=== PATIENT | female | born 1970 | race American Indian/Alaskan Native ===

== ENCOUNTER 2020-10-10 06:17 | Day surgery (SDC) | payer MEDICAID ==
[~2020-10-10 06:17] MED LIST: SODIUM CHLORIDE 0.9% 1000 ML 1,000 ML IV SCH; ceFAZolin/Water 2 GM/20 ML 2 GM/20 ML SYRINGE IV NR
[2020-10-10 07:11] LABS: Hematocrit 28.1 % (30.3-42.9); Hemoglobin 9.1 gm/dl (10.1-14.3); Mean Corpuscular HGB Conc 33 % (30-34); Mean Corpuscular Volume 86 fl (79-97); Platelet Count 225 K/mm3 (140-440); Red Blood Count 3.28 M/mm3 (3.65-5.03); Red Cell Distribution Width 14.1 % (13.2-15.2)
[2020-10-10] MEDS ORDERED: PROTAMINE SULFATE 50 MG/5 ML INJ ONE (07:11)
[2020-10-10] MEDS ORDERED: HEPARIN 10,000 UNITS/10 ML VIAL ONE (07:11)
[2020-10-10] MEDS ORDERED: SODIUM CHLORIDE 0.9% 250ML 0 ML ONE (07:11)
[2020-10-10] MEDS ORDERED: LIDOCAINE (1%) 10 MG/1 ML VIAL 20 ML MDV ONE (07:18)
[2020-10-10] MEDS ORDERED: SODIUM CHLORIDE 0.9% 500 ML 500 ML ONE (07:19)
[2020-10-10] MEDS ORDERED: BUPIVACAINE/PF (0.5%) 5 MG/1 ML 30 ML VIAL INFILTRATI ONE (07:19)
[2020-10-10] MEDS ORDERED: NITROGLYCERIN SYRINGE 3 ML ONE (07:22)
[2020-10-10 07:31] LABS: Calcium 7.8 mg/dL (8.4-10.2)
--- NOTE | 2020-10-10 07:34 | Anesthesia Day of Surgery ---
Anesthesia Day of Surgery - Day of Surgery Patient Examined: Yes Patient H&P Reviewed: Yes Patient is NPO: Yes Beta Blockers: Yes
[2020-10-10] MEDS ORDERED: fentaNYL 100 MCG/2 ML INJ IV NR (07:36)
[2020-10-10] MEDS ORDERED: HYDROmorphone 1 MG/1 ML INJ IV PRN ×2 (07:36)
[2020-10-10] MEDS ORDERED: ONDANSETRON 4 MG/2 ML INJ IV PRN (07:36)
--- NOTE | 2020-10-10 07:36 | Anesthesia Consultation ---
Anesthesia Consult and Med Hx Date of service: 10/10/20 - Airway Anesthetic Teeth Evaluation: Partials ROM Head & Neck: Adequate Mental/Hyoid Distance: Adequate Mallampati Class: Class III Intubation Access Assessment: Probably Good - Pre-Operative Health Status ASA Pre-Surgery Classification: ASA3 Nerve Block: SC; GA if needed - Pulmonary Hx Smoking: No Hx Asthma: No Hx Respiratory Symptoms: No (+2FS) COPD: No Hx Pneumonia: No Hx Sleep Apnea: No (SCORED HIGH ON PRESCREEN- SNORES) - Cardiovascular System Hx Hypertension: Yes (ETT 6-7 years ago) Hx Heart Attack/AMI: No Hx Pacemaker: No Hx Internal Defibrillator: No Hx Heart Murmur: No - Central Nervous System Hx Seizures: No Hx Back Pain: Yes (OCC. ) Hx Psychiatric Problems: No - Endocrine Hx Renal Disease: Yes Hx End Stage Renal Disease: Yes (HAS NOT STARTED DIALYSIS YET) Hx Cirrhosis: No Hx Liver Disease: No Hx Non-Insulin Dependent Diabetes: Yes Hx Thyroid Disease: Yes Hx Hypothyroidism: Yes - Hematic Hx Anemia: Yes Hx Sickle Cell Disease: No - Other Systems Hx Alcohol Use: No Hx Substance Use: No Hx Cancer: No Hx Obesity: Yes
[2020-10-10] MEDS ORDERED: BUPIVACAINE-EPINEPHRINE/PF 0.5%-1:200,000 (30 ML) VIAL INFILTRATI ONE (07:38)
[2020-10-10] MEDS ORDERED: MIDAZOLAM 2 MG/2 ML INJ IV NR (08:00)
[2020-10-10] MEDS ORDERED: HYDROmorphone 1 MG/1 ML INJ ONE (08:03)
[2020-10-10] MEDS ORDERED: propofoL 200 MG/20 ML VIAL IV ONE ×3 (08:03→09:12)
[2020-10-10] MEDS ORDERED: MIDAZOLAM 2 MG/2 ML INJ ONE (08:03)
[2020-10-10] MEDS ORDERED: LIDOCAINE MPF (2%) 20 MG/1 ML VIAL 5 ML ONE (08:07)
[2020-10-10] MEDS ORDERED: ceFAZolin 1 GM VIAL ONE (08:26)
[2020-10-10] MEDS ORDERED: HEPARIN 10,000 UNITS/10 ML VIAL IV ONE (09:01)
[2020-10-10] MEDS ORDERED: BUPIVACAINE/PF (0.5%) 5 MG/1 ML 10 ML VIAL INFILTRATI ONE (09:02)
[2020-10-10] MEDS ORDERED: SODIUM CHLORIDE 0.9% 500 ML IVPB IV ONE (09:04)
[2020-10-10] MEDS ORDERED: ONDANSETRON 4 MG/2 ML INJ ONE (09:47)
--- NOTE | 2020-10-10 09:56 | Short Stay Summary ---
Short Stay Documentation Date of service: 10/10/20 Narrative H&P: See H&P - History H&P: obtained from office - Allergies and Medications Current Medications: Allergies Sulfa (Sulfonamide Antibiotics) Adverse Reaction (Intermediate, Verified 10/04/20 17:11) Itching Home Medications Medication Instructions Recorded Confirmed Last Taken Type Atorvastatin [Lipitor] 40 mg PO 3XW 10/04/20 10/04/20 Unknown History Calcitriol 0.25 mcg PO 3XW 10/04/20 10/10/20 10/08/20 09:00 History HumuLIN 70/30 Kwikpen 44 units SQ QAM 10/04/20 10/10/20 10/09/20 20:00 History Levothyroxine Sodium 175 mcg PO DAILY 10/04/20 10/10/20 10/08/20 09:00 History [Levothyroxine] Sodium Bicarbonate 650 mg PO BID 10/04/20 10/10/20 10/09/20 17:00 History carvediloL [Coreg] 25 mg PO BID 10/04/20 10/10/20 10/10/20 05:00 History hydrALAZINE [Apresoline TAB] 25 mg PO BID 10/04/20 10/10/20 10/09/20 17:00 History Active Medications Fentanyl (Fentanyl 100 Mcg/2 Ml Inj) 100 mcg IV ONCE NR Stop: 10/10/20 23:00 Last Admin: 10/10/20 07:50 Dose: 100 mcg Documented by: Hydromorphone HCl (Hydromorphone 1 Mg/1 Ml Inj) 0.25 mg IV Q10MIN PRN PRN Reason: Pain, Moderate (4-6) Stop: 10/10/20 23:00 Hydromorphone HCl (Hydromorphone 1 Mg/1 Ml Inj) 0.5 mg IV Q10MIN PRN PRN Reason: Pain , Severe (7-10) Stop: 10/10/20 23:00 Sodium Chloride (Nacl 0.9% 1000 Ml) 1,000 mls @ 75 mls/hr IV DIRECT ROBB Last Admin: 10/10/20 07:05 Dose: 75 mls/hr Documented by: Cefazolin Sodium 3 gm/ Sodium (Chloride) 100 mls @ 100 mls/30 min IV PREOP NR; Protocol Stop: 10/10/20 10:30 Midazolam HCl (Midazolam 2 Mg/2 Ml Inj) 2 mg IV PREOP NR Stop: 10/10/20 23:59 Last Admin: 10/10/20 07:50 Dose: 2 mg Documented by: Ondansetron HCl (Ondansetron 4 Mg/2 Ml Inj) 4 mg IV ONCE PRN PRN Reason: Nausea And Vomiting Stop: 10/10/20 23:00 - Brief post op/procedure progress note Date of procedure: 10/10/20 Pre-op diagnosis: Chronic Renal Sufficiency Post-op diagnosis: same (`) Procedure: Creation of Left Brachiocephalic Arteriovenous Fistula Anesthesia: MAC, regional Surgeon: ZOE JEFFERS Estimated blood loss: minimal Pathology: none Condition: stable - Disposition Condition at discharge: Good Disposition: DC-01 TO HOME OR SELFCARE Short Stay Discharge Plan Activity: other (No heavy lifting with left arm for 2 weeks. Use a stress ball with left hand as often as possible.) Wound: open to air, keep clean and dry, other (Okay to shower and wash the wound with soap and water but do not soak in water for 2 weeks.) Follow up with: ZOE JEFFERS MD [Staff Physician] - 14 Days Prescriptions: HYDROcodone/APAP 5-325 [[place] 5/325] 1 each PO Q4HR PRN #30 tablet PRN Reason: Pain
--- NOTE | 2020-10-10 09:58 | Operative Report ---
Operative Report Operative Report: Date of procedure: 10/10/2020 Pre-operative diagnosis: Chronic Renal Sufficiency Post-operative diagnosis: Same Procedure(s): Creation of Left brachial Artery to Cephalic Vein Arteriovenous Fistula Surgeon: Jose Oliveros MD Special Education Associate: None Anesthesia: Regional/MAC EBL: Minimal Counts: Correct Complications: None Condition: Stable Findings: Successful creation of left brachiocephalic arteriovenous fistula with palpable thrill and palpable radial pulse at the completion of the case. Specimen: None Indications: The patient is a 49-year-old female with a history of chronic renal sufficiency who was not yet on hemodialysis however it is anticipated that she will require dialysis within the next several months. She is in need of long-term dialysis access and was found to be a suitable candidate for creation of an arteriovenous fistula. She was given the risk, benefits, and alternative procedures and consented to the procedure. Description of Procedure: The patient had a regional block of the patient's left arm performed in the preoperative area prior to being transported to the operating room. Once the regional block was performed the patient was transported to the operating room and adequate sedation was given. When the patient was sedated a timeout was performed and the patient's left arm was then prepped and draped in normal sterile fashion. A transverse incision was then made and carried down to the cephalic vein using sharp dissection. The vein was dissected out both proximally and distally and suture ligated and divided distally. I flushed the vein with heparinized saline and flow was controlled with a bulldog clamp. I then dissected out the brachial artery through this incision circumferentially both proximal and distal and controlled the artery with vessel loops. I systemically heparinized the patient with 3000 units of heparin IV and used angled DeBakey clamps to control flow through the artery. I created an arteriotomy using an 11 blade and Mckinnon scissors. I created an end to side anastomosis between the cephalic vein and brachial artery using a 6-0 Prolene in running fashion. Prior to completing the anastomosis I flashed the artery both proximally and distally and then flushed the anastomosis with heparinized saline to remove any debris. I then completed the anastomosis and removed all clamps allowing flow into the fistula which had an adequate thrill. I achieved hemostasis with a combination of Quick Clot and electrocautery. Once hemostasis had been achieved I closed the wound in 2 layers using a 3-0 Vicryl in a running fashion in the deep dermal layer and a 4-0 Monocryl in running fashion in the s ubcuticular layer. I then dressed the wound with Dermabond. The patient tolerated the procedure well. All sponge, needle, and instrument counts were correct. The patient was taken to the recovery area in stable condition.
--- NOTE | 2020-10-10 11:01 | Post Anesthesia Evaluation ---
- Post Anesthesia Evaluation Patient Participated: Yes Airway Patent: Yes Stable Respiratory Function: Yes Nausea/Vomiting: No Temp > 96.8F: Yes Pain Manageable: Yes Adequeate Hydration: Yes Anesthesia Complications: No Block Receding Appropriately: Yes Patient on Ventilator: No
[2020-10-10 13:37] VITALS: BP 147/83
== END 2020-10-10 06:18 | disposition home or self-care (01) ==
LOC: OR 06:17
PROVIDERS: ATTEND Surgery Vascular Surgery
DX: I12.0 Hypertensive chronic kidney disease with stage 5 chronic kidney disease or end stage renal disease (principal); N18.6 End stage renal disease; E11.22 Type 2 diabetes mellitus with diabetic chronic kidney disease; E78.00 Pure hypercholesterolemia, unspecified; K21.9 Gastro-esophageal reflux disease without esophagitis; E66.9 Obesity, unspecified; E03.9 Hypothyroidism, unspecified; D64.9 Anemia, unspecified; Z98.890 Other specified postprocedural states; Z87.440 Personal history of urinary (tract) infections; Z88.2 Allergy status to sulfonamides; Z68.42 Body mass index [BMI] 45.0-49.9, adult; Z79.899 Other long term (current) drug therapy
CPT/HCPCS: 36415; 36821; 80048; 82962; 85027; C1757; J0690; J1170; J1644; J2250; J2405; J2704; J3010; J7030; J7040; 64450; J2720; J7050